=== PATIENT | male | born 2000 | race Caucasian/White ===

== ENCOUNTER 2022-06-28 11:32 | Inpatient (IN) ==
--- NOTE | 2022-06-28 12:33 | Emergency Department Note ---
Impression & Plan Pneumothorax, Right-sided chest pain ED Provider Note INFORMANT: Patient ED PROVIDER(S): Filiberto Vega DO CHIEF COMPLAINT: Pneumothorax, right-sided chest pain PLAN: Disposition: Admission Outpatient prescription management: none Discussion with: Hospitalist as well as environment friendly landscape designer, Dr. Jiménez MEDICAL DECISION MAKING: This is a 22-year-old male who presents to the ED with a chief complaint of right-sided chest pain. The patient went to [employer] and was found to have a pneumothorax on the right. Patient smokes marijuana and vapes but otherwise denies any trauma. His vital signs here reveal that he is afebrile. Oxygen saturations are 96% on room air. Blood pressure is slightly elevated. His physical exam reveals diminished breath sounds on the right compared to the left. No crepitus palpated. No history of spontaneous pneumothoraces in the past. The patient's vital signs are stable. Physical exam shows diminished breath sounds of the right lung. No other significant findings on my exam. Patient CBC did not show any concerning anemia or leukocytosis. There is no electrolyte abnormality or kidney dysfunction. After written and verbal consent was obtained from the patient, a right-sided Thora-Vent chest tube was placed and applied to suction. This appears to have reinflated the lung. I did speak with Dr. Jiménez about the patient. He recommended a CT scan to rule out any structural lung abnormalities. I did speak with the hospitalist who will also see the patient for inpatient evaluation and care. Triage Nursing notes reviewed. Vital Signs: reviewed Prior /Outside records reviewed: [facility] records reviewed Differential diagnosis: Pneumothorax, pneumonia, MD, PE Diagnostics, as interpreted by me: 12 lead ECG: Normal sinus rhythm rate of 69. No ST elevation. No PVCs. Normal QTc. Cardiac Monitoring ordered: Sinus rhythm in the 60-70 range. Medical decision rules: [none] Imaging studies: Chest x-ray: Moderate right-sided pneumothorax. Procedures: Right-sided chest tube see below. Critical care: I have personally spent 30 minutes of critical care time in the direct management of this patient. This includes bedside care, interpretation of diagnostic studies, and testing, discussion with consultants, patient, and family members, and other required patient management activities. This 30 minutes is in excess of all separately billable procedures. HPI: See MDM above. PAST MEDICAL HISTORY: See Below PAST SURGICAL HISTORY: See Below SOCIAL HISTORY: See Below HOME MEDICATIONS: See Below ALLERGIES: See Below VITALS: See Below PHYSICAL EXAMINATION: See MDM for positive findings otherwise unremarkable. CONSTITUTIONAL/VITAL SIGNS: Reviewed GENERAL:done as appropriate INTEGUMENTARY: done as appropriate HEAD: done as appropriate EYES: done as appropriate RESPIRATORY: done as appropriate CARDIOVASCULAR:done as appropriate GI/ABDOMEN:done as appropriate EXTREMITIES: done as appropriate NEUROLOGICAL: done as appropriate PSYCHIATRIC:done as appropriate MUSCULOSKELETAL:done as appropriate TRIAGE NURSING DOCUMENTATION REVIEWED. Past Med/Surg History Social History Smoking Status: Unknown if ever smoked Allergies Allergies Allergy/AdvReac Type Severity Reaction Status Date / Time No Known Allergies Allergy Verified 06/28/22 14:56 Home Meds Home Medications Medication Instructions Recorded Confirmed No Known Home Medications 06/28/22 06/28/22 Results & Data (ED) Vital Signs Vital Signs - 24 hr 06/28/22 11:40 06/28/22 11:43 06/28/22 11:42 Temperature 37 C Temperature Source Oral Pulse Rate 75 73 79 Pulse Rate from SpO2 Sensor 79 Pulse Rhythm Regular Pulse Strength Normal Respiratory Rate 20 23 Respiratory Effort / Characteristics Non-Labored Spontaneous Respiratory Depth Normal Respiratory Pattern Regular Blood Pressure 131/81 Blood Pressure Mean 97 Pulse Oximetry 97 96 Oxygen Delivery Method Room Air Room Air Sepsis Recent Fever Within 48 Hours No Sepsis New/Unexplained Change in Mental Status N/A Sepsis Action Taken by Nursing No Action Required 06/28/22 11:50 06/28/22 12:00 06/28/22 12:00 Temperature Temperature Source Pulse Rate 82 78 Pulse Rate from SpO2 Sensor 80 79 Pulse Rhythm Pulse Strength Respiratory Rate 23 21 Respiratory Effort / Characteristics Respiratory Depth Respiratory Pattern Blood Pressure 143/89 H Blood Pressure Mean 107 Pulse Oximetry 96 97 Oxygen Delivery Method Room Air Room Air Sepsis Recent Fever Within 48 Hours Sepsis New/Unexplained Change in Mental Status Sepsis Action Taken by Nursing 06/28/22 12:10 Temperature Temperature Source Pulse Rate 91 H Pulse Rate from SpO2 Sensor 89 Pulse Rhythm Pulse Strength Respiratory Rate 19 Respiratory Effort / Characteristics Respiratory Depth Respiratory Pattern Blood Pressure Blood Pressure Mean Pulse Oximetry 96 Oxygen Delivery Method Room Air Sepsis Recent Fever Within 48 Hours Sepsis New/Unexplained Change in Mental Status Sepsis Action Taken by Nursing Laboratory Data 06/28/22 12:39 06/28/22 12:39 Lab Results 06/28/22 06/28/22 06/28/22 Range/Units 12:39 12:39 12:39 WBC 10.83 H (4.8-10.8) K/ul RBC 4.91 (4.70-6.10) M/uL Hgb 15.4 (14.0-18.0) g/dl Hct 43.3 (42.0-52.0) % MCV 88.2 (80.0-100.0) fL MCH 31.4 (25.0-34.0) pg MCHC 35.6 (32.0-36.0) g/dL RDW Std Deviation 42.5 (36.4-46.3) fL RDW Coeff of Scott 13.1 (11.5-14.5) % Plt Count 256 (130-400) K/uL MPV 9.6 (9.4-12.4) fL Immature Gran % (Auto) 0.5 % Neut % (Auto) 75.8 % Lymph % (Auto) 14.1 % [place] % (Auto) 9.0 % Eos % (Auto) 0.3 % Baso % (Auto) 0.3 % Neut # (Auto) 8.22 H (1.40-6.50) K/uL Lymph # (Auto) 1.53 (1.2-3.4) K/uL [place] # (Auto) 0.97 H (0.11-0.59) K/uL Eos # (Auto) 0.03 (0-0.50) K/uL Baso # (Auto) 0.03 (0-0.2) K/uL Immature Gran # (Auto) 0.05 (0.01-0.20) K/uL D-Dimer 230 (0-500) ug/L FEU Sodium 139 (136-145) mmol/L Potassium 3.5 (3.5-5.1) mmol/L Chloride 106 (98-107) mmol/L Carbon Dioxide 24 (21-32) mmol/L Anion Gap 9 (3-11) BUN 10 (6-23) mg/dl Creatinine 0.71 (0.6-1.4) mg/dl Est Cr Clr Drug Dosing Not Reportable Est GFR ( Amer) > 150.0 ml/min Est GFR (Non-Af Amer) 135.1 ml/min BUN/Creatinine Ratio 14.1 (10-20) Glucose 90 (70-99(Fasting)) mg/dl Calcium 9.2 (8.5-10.1) mg/dl Total Bilirubin 0.9 (0.2-1.0) mg/dl AST 27 (13-39) U/L ALT 18 (7-52) U/L Alkaline Phosphatase 51 (34-104) U/L Troponin I High Sens 2.9 (0-20) pg/ml Total Protein 7.5 (6.0-8.3) gm/dl Albumin 4.5 (3.4-5.0) gm/dl Globulin 3.0 (2.5-4.0) gm/dl Albumin/Globulin Ratio 1.5 (0.9-2) Lipase < 3 L (11-82) U/L SARS-CoV-2, RNA, NAAT (NEGATIVE) 06/28/22 Range/Units 14:29 WBC (4.8-10.8) K/ul RBC (4.70-6.10) M/uL Hgb (14.0-18.0) g/dl Hct (42.0-52.0) % MCV (80.0-100.0) fL MCH (25.0-34.0) pg MCHC (32.0-36.0) g/dL RDW Std Deviation (36.4-46.3) fL RDW Coeff of Scott (11.5-14.5) % Plt Count (130-400) K/uL MPV (9.4-12.4) fL Immature Gran % (Auto) % Neut % (Auto) % Lymph % (Auto) % [place] % (Auto) % Eos % (Auto) % Baso % (Auto) % Neut # (Auto) (1.40-6.50) K/uL Lymph # (Auto) (1.2-3.4) K/uL [place] # (Auto) (0.11-0.59) K/uL Eos # (Auto) (0-0.50) K/uL Baso # (Auto) (0-0.2) K/uL Immature Gran # (Auto) (0.01-0.20) K/uL D-Dimer (0-500) ug/L FEU Sodium (136-145) mmol/L Potassium (3.5-5.1) mmol/L Chloride (98-107) mmol/L Carbon Dioxide (21-32) mmol/L Anion Gap (3-11) BUN (6-23) mg/dl Creatinine (0.6-1.4) mg/dl Est Cr Clr Drug Dosing Est GFR ( Amer) ml/min Est GFR (Non-Af Amer) ml/min BUN/Creatinine Ratio (10-20) Glucose (70-99(Fasting)) mg/dl Calcium (8.5-10.1) mg/dl Total Bilirubin (0.2-1.0) mg/dl AST (13-39) U/L ALT (7-52) U/L Alkaline Phosphatase (34-104) U/L Troponin I High Sens (0-20) pg/ml Total Protein (6.0-8.3) gm/dl Albumin (3.4-5.0) gm/dl Globulin (2.5-4.0) gm/dl Albumin/Globulin Ratio (0.9-2) Lipase (11-82) U/L SARS-CoV-2, RNA, NAAT NEGATIVE (NEGATIVE) Administered Medications Discontinued Medications Lidocaine/Epinephrine (Lidocaine 1%/Epinephrine 1:100,000 50 Ml Vial) 20 ml INFIL NOW ONE Stop: 06/28/22 12:42 Last Admin: 06/28/22 13:02 Dose: 20 ml Documented By: [id number] Midazolam HCl (Midazolam Hcl 5 Mg/Ml 1 Ml Vial) 5 mg IV NOW STA Stop: 06/28/22 12:42 Last Admin: 06/28/22 13:26 Dose: Not Given Documented By: [id number] Morphine Sulfate (Morphine Sulfate 4 Mg/Ml 1 Ml Carp\Vial) 4 mg IV NOW STA Stop: 06/28/22 12:42 Last Admin: 06/28/22 12:58 Dose: 4 mg Documented By: [id number] Imaging Data Radiologist's Impression: Chest X-Ray 06/28/22 12:04 XR chest 1V portable CLINICAL HISTORY: Chest pain, nonspecific TECHNIQUE: Single frontal radiograph of the chest was obtained. Comparison: None available at the time of this dictation. FINDINGS: No lines and tubes are seen. The cardiomediastinal silhouette is normal. The lungs are clear. There is a large right pneumothorax. IMPRESSION: Large right pneumothorax is seen. ACT 112: Negative or not required by law. Electronically signed by: Arsalan North M.D. 06/28/2022 12:49 PM Chest X-Ray 06/28/22 13:23 XR chest 1V portable HISTORY: 22 years-old Male s/p chest tube status post placement of a right- sided chest tube. Right-sided pneumothorax COMPARISON: Chest radiograph of same day at 12:23 PM TECHNIQUE: AP view of the chest FINDINGS: Cardiomediastinal and hilar silhouettes are within normal limits. Status post placement of a smallbore right-sided chest tube with distal tip projects over the right lateral upper lung. There is improved aeration of the right lung. Trace residual right apical pneumothorax, pleural separation of 8 mm. Bones appear grossly intact. IMPRESSION: Trace right apical pneumothorax has decreased in size status post placement of a right-sided chest tube. ACT 112: Negative or not required by law. The above report was generated using voice recognition software. It may contain grammatical, syntax or spelling errors. Electronically signed by: Jhonny Watson M.D. 06/28/2022 1:35 PM Discharge Plan Visit Data Chief Complaint: Chest Pain ED Provider: Filiberto Vega Discharge Problem: Pneumothorax, Right-sided chest pain Forms Stand Alone Forms: [facility] Prescriptions Prescriptions: No Action No Known Home Medications Referrals Referrals: PCP,NO [Primary Care Provider] - Procedures Chest Tube Chest Tube 1: Chest Tube Location: left Size of Tube (cm): 8 Chest Tube Prep: Yes betadine prep and sterile drapes applied Local Anesthetic: lidocaine 1% and with epi Amount of anesthesia used (mL): 15 Incision Made With: #11 blade Post Procedure: other (Thora-Vent secured method) Tube Drainage: none Post Procedure CXR?: Yes Patient Tolerated Procedure: Yes Progress: X-ray: Improvement of pneumothorax.
[2022-06-28] MEDS ORDERED: LIDOCAINE 1%/EPINEPHRINE 1:100,000 50 ML VIAL INFIL ONE (12:41)
[2022-06-28] MEDS ORDERED: MoRPHine SULFATE 4 MG/ML 1 ML CARP\\VIAL IV STA (12:41)
--- NOTE | 2022-06-28 12:51 | XRay Report ---
XR chest 1V portable CLINICAL HISTORY: Chest pain, nonspecific TECHNIQUE: Single frontal radiograph of the chest was obtained. Comparison: None available at the time of this dictation. FINDINGS: No lines and tubes are seen. The cardiomediastinal silhouette is normal. The lungs are clear. There i s a large right pneumothorax. IMPRESSION: Large right pneumothorax is seen. ACT 112: Negative or not required by law. Electronically signed by: Arsalan North M.D. 06/28/2022 12:49 PM
[2022-06-28 12:54] LABS: Basophils # (auto) 0.03 K/uL (0-0.2); Basophils % (auto) 0.3 %; Eosinophils # (auto) 0.03 K/uL (0-0.50); Eosinophils % (auto) 0.3 %; Hematocrit (blood only) 43.3 % (42.0-52.0); Hemoglobin 15.4 g/dl (14.0-18.0); Immature Granulocytes # (auto) 0.05 K/uL (0.01-0.20); Immature Granulocytes % (auto) 0.5 %; Lymphocytes # (auto) 1.53 K/uL (1.2-3.4); Lymphocytes % (auto) 14.1 %; Mean Corpuscular Hemoglobin 31.4 pg (25.0-34.0); Mean Corpuscular Hgb Conc 35.6 g/dL (32.0-36.0); Mean Corpuscular Volume 88.2 fL (80.0-100.0); Mean Platelet Volume 9.6 fL (9.4-12.4); Monocytes # (auto) 0.97 K/uL (0.11-0.59); Neutrophils # (auto) 8.22 K/uL (1.40-6.50); Neutrophils % (auto) 75.8 %; Platelet Count 256 K/uL (130-400); RDW Coefficient of Variation 13.1 % (11.5-14.5); RDW Standard Deviation 42.5 fL (36.4-46.3); Red Blood Count 4.91 M/uL (4.70-6.10); White Blood Count 10.83 K/ul (4.8-10.8)
[2022-06-28] MEDS: MIDAZOLAM HCL 5 MG/ML 1 ML VIAL IV STA ×2 (13:02→13:26)
[2022-06-28 13:05] LABS: D Dimer 230 ug/L FEU (0-500)
[2022-06-28 13:27] LABS: Troponin I High Sensitivity 2.9 pg/ml (0-20)
--- NOTE | 2022-06-28 13:37 | XRay Report ---
XR chest 1V portable HISTORY: 22 years-old Male s/p chest tube status post placement of a right-sided chest tube. Right-s ided pneumothorax COMPARISON: Chest radiograph of same day at 12:23 PM TECHNIQUE: AP view of the chest FINDINGS: Cardiomediastinal and hilar silhouettes are within normal limits. Status post placement of a smallbor e right-sided chest tube with distal tip projects over the right lateral upper lung. There is improve d aeration of the right lung. Trace residual right apical pneumothorax, pleural separation of 8 mm. B ones appear grossly intact. IMPRESSION: Trace right apical pneumothorax has decreased in size status post placement of a right-si ded chest tube. ACT 112: Negative or not required by law. The above report was generated using voice recognition software. It may contain grammatical, syntax o r spelling errors. Electronically signed by: Jhonny Watson M.D. 06/28/2022 1:35 PM
[2022-06-28 13:42] LABS: Albumin Level 4.5 gm/dl (3.4-5.0); Anion Gap 9 (3-11); Bilirubin,Total 0.9 mg/dl (0.2-1.0); Calcium 9.2 mg/dl (8.5-10.1); Carbon Dioxide 24 mmol/L (21-32); Chloride 106 mmol/L (98-107); Potassium 3.5 mmol/L (3.5-5.1); Sodium 139 mmol/L (136-145)
[2022-06-28 13:48] LABS: BUN Creatinine Ratio 14.1 (10-20); Blood Urea Nitrogen 10 mg/dl (6-23); Est GFR (African American) > 150.0 ml/min; Est GFR (Non-African American) 135.1 ml/min; Glucose 90 mg/dl (70-99(Fasting))
[2022-06-28 13:56] LABS: Alanine Aminotransferase 18 U/L (7-52); Albumin Globulin Ratio 1.5 (0.9-2); Alkaline Phosphatase 51 U/L (34-104); Aspartate Aminotransferase 27 U/L (13-39); Lipase < 3 U/L (11-82); Total Protein 7.5 gm/dl (6.0-8.3)
--- NOTE | 2022-06-28 14:24 | History & Physical Report ---
Date of Service June 28, 2022 Assessment & Plan (1) Pneumothorax: Plan: Spontaneous pneumothorax Prior to onset patient ran across basketball court, hung from a basketball rim, and then shortly after developed a sharp pain worse with inspiration at his right chest and back which gradually worsened prompting ER evaluation. No other trauma/injury. No prior pneumothorax. No known lung disease, no family history of lung disease/abnormalities Patient with twice daily marijuana use, less than 1 pack/week tobacco use, intermittent vaping use on the weekend, alcohol use up to 5 per setting on weekends. 2 beers last night prior to onset of symptoms Initial CXR:Large right pneumothorax is seen. - Repeat CXR: Cardiomediastinal and hilar silhouettes are within normal limits. Status post placement of a smallbore right-sided chest tube with distal tip pro jects over the right lateral upper lung. There is improved aeration of the right lung. Trace residual right apical pneumothorax, pleural separation of 8 mm. Bones appear grossly intact. O2 sat 96% on 4 L Chest tube in place, maintenance to gravity, pulmonology consulted. Initially with air leak and chest tube, no air leak on repeat assessment Tylenol first-line, Toradol second line, breakthrough morphine for pain control. Pain adequately controlled at bedside Patient denies other chronic medical problems, reports he takes no prescription medications, has not used [id number] medications recently. DVT low risk, SCDs. Full code. Diet: Regular Disposition: Medical telemetry for serial vitals and observation post chest tube placement History of Present Illness Primary Care Provider: NO PCP Playing a lot of basketball alst 2-3 days. Last midnight last night ran across court, jumped and hung from basketball rim for a few seconds. 5 min later at [employer] 'lungs felt awful' with shortness of breath. Started having sharp pain on R back/chest worse with inspiration. Worse when sitting up. No prior hx of similar symptoms. No family history of pneumothorax No other injuries Smokes marijuana daily 2x per day. Vapres rarely when drinking. Cigarettes 1x 3xper week. EtoH on the weekends 5-8 in a sitting. Had 2 beers last night prior to pain starting. No problems with bleeding No other medical problems No medications, no OTC medications No medication allergies Previously on adderall 4 years ago, no longer takes No history of surgery Surrogate DM: Mother Marie Aburto [phone]. Can call for medical updates. Full Code. FHX: Father passed from melanoma, mother with breast cancer. No heart disease or lung disease. No t Pain improving, max 4/10 on inspiration, minimal at rest. On 4L NC Allergies Allergy/AdvReac Type Severity Reaction Status Date / Time Unable to Assess Allergy Verified 06/15/21 01:49 Home Medications Medication Instructions Recorded Confirmed Type Unobtainable 06/15/21 06/15/21 History Past Med/Surg History Social History Smoking Status: Unknown if ever smoked Review of Systems Review of Systems: All systems reviewed & are unremarkable except as noted in HPI & below Physical Exam Physical Exam: General: A&Ox3. NAD. Cooperative. HEENT: Atraumatic, normocephalic. Vision/hearing intact. Pupils equal and reactive to light. Pulm: Right-sided anterior right chest tube in place. Symmetrical chest rise. No increased work of breathing. No respiratory distress. On 4 L nasal cannula. Trachea is midline. Cardiac: Regular, tachycardic, -mrg. Radial pulses intact and symmetrical. Abdominal: Nontender, nondistended, soft. BS present. Moves all extremities equally, no sensory deficits distal extremity strength intact. Results & Data Results & Data ([facility]) Vital Signs (Past 12 Hours) Vital Signs Temp Pulse Resp BP Pulse Ox O2 Del Method 06/28/22 12:10 91 H 19 96 Room Air 06/28/22 12:00 78 21 97 Room Air 06/28/22 12:00 143/89 H 06/28/22 11:50 82 23 96 Room Air 06/28/22 11:42 79 23 96 Room Air 06/28/22 11:43 73 06/28/22 11:40 37 C 75 20 131/81 97 Room Air PG Care Time/CCT Total # of Minutes Spent Total Time Spent with Patient: Total time spent is greater than 50% in coordination of care (as documented) at patient's floor/unit and/or counseling patient: Coding Level of Care Code 56569 INT INP/OBS CARE 2/55MIN Diagnoses Pneumothorax J93.9
--- NOTE | 2022-06-28 15:23 | Pulmonary Consultation ---
Date of Consultation June 28, 2022 Assessment & Plan (1) Pneumothorax: 22-year-old male presenting with spontaneous RIGHT-sided pneumothorax, status post Thora vent placement requiring ongoing monitoring from pulmonary service. 1. RIGHT-sided spontaneous pneumothorax: * Thora vent remains to suction on my initial evaluation. * Slight air leak only with deep breaths and cough. Otherwise, no leak noted. * Continue with suction for now until reevaluated later this evening and after CT performed. * CT chest without contrast for evaluation of parenchymal structures. * Patient's risk factors include smoking, marijuana use, and vaping. Additionally, patient is a tall thin male. No history of asthma or other pulmonary concerns. * Hopeful the event can be removed in the next day or so. * Pain control as you are. Thank you for allowing us to participate in the care of this patient. We will continue to follow throughout patient's hospitalization. (2) Right-sided chest pain: Supervising Physician Co-Signing Physician Notes Patient seen and examined. EMR reviewed. Discussed with RO as well as with the ER staff. Agree with assessment plan as noted. Await CT scan of the chest to evaluate for structural lung disease. Continue chest tube dysfunction and follow-up imaging. We will then pursue clamping and waterseal trials. Smoking an e-cigarette abstinence recommended. Pain control per primary service. We will reassess with follow-up CT scan and chest x-ray in a.m. History of Present Illness Reason for Consultation: Spontaneous Pneumothorax Requesting Physician: Dr. Reyes Attending Physician: Dr. Jiménez History of Present Illness Patient is a healthy 22-year-old [employer] student with no reported past medical history who presented to the emergency department after being evaluated at urgent care and found to have a spontaneous RIGHT-sided pneumothorax. Patient underwent Thora vent placement in the emergency department without issue. Unfortunately, he had a slight residual leak afterwards which has seemed to improve. Patient denies any history of prior pneumothoraces. He does report a history of regular marijuana use. He occasionally vapes when he drinks. He states that he occasionally mixes nicotine with his marijuana, but does not smoke cigarettes. This did not occur when he was smoking or vaping. He states that he was at [employer] and had a slight episode of coughing when he developed worsening RIGHT-sided chest pain which eventually prompted his visit to urgent care. Currently, during evaluation at bedside in room B7, the patient is awake, alert, and oriented. He complains of minimal discomfort to the RIGHT-sided chest at this time. He denies any pleuritic pain. No hemoptysis. Patient denies any dizziness or lightheadedness. He reports no nausea or vomiting. Allergies Allergy/AdvReac Type Severity Reaction Status Date / Time No Known Allergies Allergy Verified 06/28/22 14:56 Home Medications Medication Instructions Recorded Confirmed Type No Known Home Medications 06/28/22 06/28/22 History Patient History Social History Smoking Status: Unknown if ever smoked Review of Systems Review of Systems: A complete 10 point review of systems was reviewed with the patient with pertinent positives and negatives as per history of present illness. All else were negative. Physical Exam Physical Exam: VITAL SIGNS - Vital signs and nursing notes were reviewed. GENERAL - 22-year-old male appearing his stated age who is in no acute distress. Communicates well with provider and answers questions appropriately. HEAD - NC/AT. EYES - PERRL with EOMI bilaterally. Sclera anicteric. NECK - Neck with FROM. Supple to palpation. LUNGS - ThroaVent in place to the RIGHT sided chest well. Chest wall symmetric without accessory muscle use, intercostals retractions, or central cyanosis. Normal vesicular breath sounds CTA B/L. No wheezes, rales, or rhonchi appreciated. CARDIAC - RRR with S1/S2. No murmur, rubs, or gallops appreciated. No reproducible tenderness to palpation appreciated over the anterior chest wall. ABDOMEN - Abdominal contour flat without pulsations or visible masses. BS normoactive all four quadrants. No tenderness, palpable masses, hepatosplenomegaly, or ascites noted. EXTREMITIES - No clubbing or peripheral cyanosis. No pretibial edema present. +3/5 radial and dorsalis pedis pulses palpated throughout. +5/5 strength noted in UE/LE bilaterally. NEUROLOGIC - Cranial nerves II through XII grossly intact. PSYCH - A&Ox3 and cooperates fully with examiner. Pt is very pleasant and interacts well with examiner. Results & Data Results & Data ([facility]) Vital Signs (Past 12 Hours) Vital Signs Temp Pulse Resp BP Pulse Ox O2 Del Method 06/28/22 12:10 91 H 19 96 Room Air 06/28/22 12:00 78 21 97 Room Air 06/28/22 12:00 143/89 H 06/28/22 11:50 82 23 96 Room Air 06/28/22 11:42 79 23 96 Room Air 06/28/22 11:43 73 06/28/22 11:40 37 C 75 20 131/81 97 Room Air PG Care Time/CCT Total # of Minutes Spent Total Time Spent with Patient: Total time spent is greater than 50% in coordination of care (as documented) at patient's floor/unit and/or counseling patient: Coding Level of Care Code INP/OBS CONSULT LVL 3, 45 MIN Diagnoses Pneumothorax J93.9 Right-sided chest pain R07.9
--- NOTE | 2022-06-28 17:01 | CT Scan Report ---
CT chest diagnostic wo con CLINICAL HISTORY: s/p pneumothorax, chest tube TECHNIQUE: Multidetector row helical CT of the chest was performed. Coronal and sagittal reformations were obtained. Automated dose lowering techniques and/or adjustment according to patient size were u tilized for this exam. CT DOSE: 242.87 mGycm Comparison: Comparison is made to chest radiograph 04/27/2020 FINDINGS: Lungs and pleura: Right chest tube is seen with a small residual pneumothorax. Atelectasis is seen in the right lung base. Heart and pericardium: Heart size is normal. No pericardial effusion. Vessels: Unremarkable. Mediastinum and fartun: Subcentimeter lymph nodes are seen. Chest wall and lower neck: Unremarkable. Abdomen: Unremarkable. Bones: Unremarkable. IMPRESSION: A small residual pneumothorax remains status post placement of a right chest tube. ACT 112: Negative or not required by law. Electronically signed by: Arsalan North M.D. 06/28/2022 4:59 PM
[2022-06-28] MEDS ORDERED: MoRPHine SULFATE 2 MG/ML CARP IV PRN (17:14)
[2022-06-28] MEDS ORDERED: ACETAMINOPHEN 325 MG TAB PO PRN (17:14)
[2022-06-28] MEDS ORDERED: KETOROLAC TROMETHAMINE 15 MG/ML VIAL IV PRN (17:14)
[2022-06-29 08:45] LABS: Basophils # (auto) 0.03 K/uL (0-0.2); Basophils % (auto) 0.3 %; Eosinophils # (auto) 0.13 K/uL (0-0.50); Eosinophils % (auto) 1.3 %; Hematocrit (blood only) 44.5 % (42.0-52.0); Hemoglobin 15.7 g/dl (14.0-18.0); Immature Granulocytes # (auto) 0.03 K/uL (0.01-0.20); Immature Granulocytes % (auto) 0.3 %; Lymphocytes # (auto) 1.83 K/uL (1.2-3.4); Lymphocytes % (auto) 18.9 %; Mean Corpuscular Hemoglobin 31.2 pg (25.0-34.0); Mean Corpuscular Hgb Conc 35.3 g/dL (32.0-36.0); Mean Corpuscular Volume 88.3 fL (80.0-100.0); Mean Platelet Volume 9.9 fL (9.4-12.4); Monocytes # (auto) 1.29 K/uL (0.11-0.59); Monocytes % (auto) 13.3 %; Neutrophils # (auto) 6.36 K/uL (1.40-6.50); Neutrophils % (auto) 65.9 %; Platelet Count 295 K/uL (130-400); RDW Coefficient of Variation 13.1 % (11.5-14.5); RDW Standard Deviation 42.4 fL (36.4-46.3); Red Blood Count 5.04 M/uL (4.70-6.10); White Blood Count 9.67 K/ul (4.8-10.8)
--- NOTE | 2022-06-29 08:48 | XRay Report ---
XR chest 1V portable CLINICAL HISTORY: Pneumothorax. COMPARISON STUDY: Chest radiograph June 28, 2022 at 1:[address] June 28, 2022. FINDINGS: Right pleural catheter remains in place. No residual pneumothorax is identified. No airspac e opacities are present. Cardiac size is normal. Mediastinal contours are normal. IMPRESSION: Right pleural catheter in place. No residual pneumothorax. ACT 112: Negative or not required by law. Electronically signed by: Bobby Brush M.D. 06/29/2022 8:47 AM
[2022-06-29 08:54] LABS: BUN Creatinine Ratio 11.3 (10-20); Calcium 9.5 mg/dl (8.5-10.1); Creatinine Clr Calc Pharmacy 152.9 ml/min; Est GFR (Non-African American) 128.6 ml/min
--- NOTE | 2022-06-29 08:56 | Pulmonology Progress Note ---
Date of Service June 29, 2022 Assessment & Plan (1) Pneumothorax: Plan: 22-year-old male presenting with spontaneous RIGHT-sided pneumothorax, status post Thora vent placement requiring ongoing monitoring from pulmonary service. Chest x-ray this morning demonstrates no evidence of recurrent pneumothorax 1. RIGHT-sided spontaneous pneumothorax: Tube will be clamped and we will plan on repeating chest x-ray in 4 hours. If the lung remains up, the Toradol will be discontinued the patient can likely be dismissed from the hospital. He was advised not to participate in any activities resulting in changes in barometric pressure intrathoracic pressure for the next 1 to 2 weeks. This would include cessation of smoking including marijuana or vaping or e-cigarettes. He has a ski trip planned in 2 weeks to [place]. Recommended that he have a follow-up c hest x-ray prior to that to ensure the lung remains up. Pain control per primary service. CT scan demonstrated no significant parenchymal abnormality requiring additional intervention at this point in time. Pneumothorax appears to be precipitated by acute bronchitis and cough, possibly Alireza effect 2. Smoking cessation recommended (2) Right-sided chest pain: Admission and Anticipated Discharge Date Admission Date: June 28, 2022 Subjective Patient seen and examined. EMR reviewed. Discussed with patient at bedside. He states he is feeling better. His pain is decreasing. He has an occasional cough but is not producing any phlegm his tube has been on suction overnight. There is no air leak visible on the Pleur-evac even with coughing. Has not had any fevers or chills. Review of Systems Review of Systems: All systems reviewed & are unremarkable except as noted in Subjective Physical Exam Constitutional: WD/WN, vitals as above Neck: trachea midline, no thyromegaly Respiratory: normal respiratory effort, lungs clear to auscultation Cardiovascular: RRR, no murmur, no edema Chest (Breasts): Additional Comments: No air leak on chest tube Gastrointestinal (Abdomen): normal bowel sounds, soft, nontender, no hepatosplenomegaly Musculoskeletal: Extremities: extremities normal to inspection Skin: no rashes, warm and dry Neurologic: Nonfocal exam Lymphatic: no cervical lymphadenopathy Results & Data Results & Data ([facility]) Vital Signs (Past 12 Hours) Vital Signs Temp Pulse Pulse Resp BP Pulse Ox O2 Del Method 06/29/22 07:42 36.8 C 64 18 127/65 96 Room Air 06/29/22 07:36 Room Air 06/29/22 05:55 84 06/29/22 03:00 37.3 C 69 18 123/64 95 Room Air 06/29/22 02:32 67 06/28/22 22:00 36.9 C 74 18 131/76 96 Room Air 06/28/22 21:46 Room Air Laboratory Results 06/29/22 07:29 Diagnostic Findings Chest x-ray this morning showed no evidence of pneumothorax. PG Care Time/CCT Total # of Minutes Spent Total Time Spent with Patient: Total time spent is greater than 50% in coordination of care (as documented) at patient's floor/unit and/or counseling patient: Coding Level of Care Code 78718 SUB INP/OBS CARE 2/35MIN Diagnoses Pneumothorax J93.9 Right-sided chest pain R07.9
--- NOTE | 2022-06-29 13:27 | XRay Report ---
SINGLE VIEW CHEST CLINICAL HISTORY: Follow-up pneumothorax. The chest tube has been clamped. FINDINGS: An AP, portable, upright chest radiograph is compared to study performed the same day 2022 and correlated with chest CT dated 06/28/2022. The cardiomediastinal silhouette is unremarkable. The lungs and pleural spaces are clear. A right-sided chest tube is unchanged in position. No pneumot horax is seen. The bony thorax is grossly intact. IMPRESSION: 1. The right-sided chest tube is unchanged in position. No pneumothorax is seen. 2. The lungs are clear. ACT 112: Negative or not required by law. Electronically signed by: Dalton Gonzalez M.D. 06/29/2022 1:26 PM
--- NOTE | 2022-06-29 13:57 | Procedure Note ---
Procedure Note Date of Service June 29, 2022 Note Procedure: Removal of Thora vent Lay Up Operator Dr. Jiménez Indication: Resolution of pneumothorax Procedure: Patient was placed in semirecumbent seated position. The tube has been clamped for over 4 hours with no evidence of reaccumulation of the pneumothorax. The dressing was taken down. Under full expiration, the Thora vent was rapidly removed and an occlusive dressing applied. The patient tolerated the procedure well without any complication. Is recommended that the patient avoid any significant strenuous activities for the next week or so. He should keep the dressing in place for the next 48 hours. He can shower with the dressing in place. Recommended he have a follow- up chest x-ray in 1 to 2 weeks with his primary care provider to ensure the lung stays up before he travels to [place] for a ski trip. Feel free to contact us if we can be of additional assistance Coding CPT Codes Pulmonary/Thoracic - Pulmonary and Thoracic: 59125 Remove lung catheter ([id number]) [facility] Procedure Codes (Charges) Pulmonary/Thoracic Procedure 1: Pulmonary and Thoracic: 62260 Remove lung catheter
--- NOTE | 2022-06-29 17:48 | Discharge Summary ---
Date of Service June 29, 2022 Admission HPI Per Admitting Provider Playing a lot of basketball alst 2-3 days. Last midnight last night ran across court, jumped and hung from basketball rim for a few seconds. 5 min later at [employer] 'lungs felt awful' with shortness of breath. Started having sharp pain on R back/chest worse with inspiration. Worse when sitting up. No prior hx of similar symptoms. No family history of pneumothorax No other injuries Smokes marijuana daily 2x per day. Vapres rarely when drinking. Cigarettes 1x 3xper week. EtoH on the weekends 5-8 in a sitting. Had 2 beers last night prior to pain starting. No problems with bleeding No other medical problems No medications, no OTC medications No medication allergies Previously on adderall 4 years ago, no longer takes No history of surgery Surrogate DM: Mother Marie Aburto [phone]. Can call for medical updates. Full Code. FHX: Father passed from melanoma, mother with breast cancer. No heart disease or lung disease. No t Pain improving, max 4/10 on inspiration, minimal at rest. On 4L NC Principal Diagnosis Right Spontaneous Pneumothorax Discharge Exam Head and ENT no thyroid enlargement trachea midline Cardiovascular S1-S2 are normal no S3 Lungs bilateral air entry expansion acceptable Abdomen soft nondistended positive bowel sounds no rebound tenderness Extremity shows trace edema Neurologically no focal deficits Skin shows no rash Discharge Data Allergies Allergy/AdvReac Type Severity Reaction Status Date / Time No Known Allergies Allergy Verified 06/28/22 14:56 Consultations 06/28/22 14:13 ED Decision to Admit Stat 06/28/22 17:14 Consult Pulmonology Routine Ordered Studies 06/28/22 13:57 CT chest diagnostic wo con Stat Hospital Course (1) Pneumothorax: 22-year-old male presenting with spontaneous RIGHT-sided pneumothorax, status post Thora vent placement requiring ongoing monitoring from pulmonary service. 1. RIGHT-sided spontaneous pneumothorax: * Thora vent remains to suction on my initial evaluation. * Slight air leak only with deep breaths and cough. Otherwise, no leak noted. * Continue with suction for now until reevaluated later this evening and after CT performed. * CT chest without contrast for evaluation of parenchymal structures. * Patient's risk factors include smoking, marijuana use, and vaping. Additionally, patient is a tall thin male. No history of asthma or other pulmonary concerns. * Hopeful the event can be removed in the next day or so. * Pain control as you are. (2) Right-sided chest pain: Total Time Total Time Spent Total Time Spent (In Minutes): 42 Discharge Plan Discharge Items Patient Disposition: Home - Self-Care Reason For Visit: CHEST PAIN Discharge Diagnosis: Right spontanoeus Pneumothorax Activity: Per Instructions section Activity Comment: Is recommended that the patient avoid any significant strenuous activities Lifting: No more than 5 pounds and Wait until after follow-up appointment Sexual Activity: After two weeks Non-emergency contact: Primary Care Provider and Seat Builder Call non-emergency contact if: your symptoms worsen Follow-up/Referrals: Lyle Jiménez MD [Physician] - 07/06/22 3:45 pm [facility] [Primary Care Provider] - Diet: Heart Healthy Addtl Attending Provider Instructions: need cxr -10 days f/u pulmonary 1-2 weeks pcp -1 week Do not smoke or vape for 2 weeks smoking cessation d/w pt Pending Studies at Discharge: No Stand-Alone Forms: [employer], Work/School Release, Smoking Cessation Medications and DC Order Prescriptions: No Action No Known Home Medications Discharge Orders: Discharge Order (Routine); Ordered 06/29/22 Ordered By: Sven De Souza/Other Patient Handouts: Pneumothorax (Collapsed Lung), ED Pneumothorax, Spontaneous Admission Data Admit Date/Time: 06/28/22 14:14 Attending Provider: Sven Holbrook Admit Provider: Ishan Reyes Primary Care Provider: [facility] Other Providers: Ishan Reyes ; Lyle Jiménez Other Interventions: Discharge Summary Assessment (RN) Last Done: 06/29/22 17:46 Supervising Physician Co-Signing Physician Notes Patient seen and examined. EMR reviewed. Discussed with RO as well as with the ER staff. Agree with assessment plan as noted. Await CT scan of the chest to evaluate for structural lung disease. Continue chest tube dysfunction and follow-up imaging. We will then pursue clamping and waterseal trials. Smoking an e-cigarette abstinence recommended. Pain control per primary service. We will reassess with follow-up CT scan and chest x-ray in a.m. Coding Level of Care Code HOSP INP/OBS DISCH >30 MIN Diagnoses Pneumothorax J93.9 Right-sided chest pain R07.9
--- NOTE | 2022-06-29 22:48 | Electrocardiogram Report ---
Test Reason : Blood Pressure : / mmHG Vent. Rate : 079 BPM Atrial Rate : 079 BPM P-R Int : 144 ms QRS Dur : 098 ms QT Int : 368 ms P-R-T Axes : 032 092 063 degrees QTc Int : 421 ms Normal sinus rhythm Rightward axis Minimal voltage criteria for LVH, may be normal variant Early repolarization Abnormal ECG No previous ECGs available Confirmed by Vamshi Rodriguez ([id number]) on 06/29/2022 10:48:06 PM Referred By: REFERRED SELF Confirmed By:Sudhir Rodriguez
== END 2022-06-29 18:29 | disposition home or self-care (01) | DRG 201 ==
LOC: ED 11:32 → 2N 14:14 → SUATTDRO 14:14 → 2N 16:22